=== PATIENT | female | born 1990 | race Caucasian/White ===

== ENCOUNTER 2025-01-25 08:56 | Outpatient (AMB) | payer SELFPAY ==
--- NOTE | 2025-01-25 09:19 | GYNCLNT_ITS ---
Vital Signs 01/25/25 09:20 Height 1.68 m Height Method Stated Weight 55.508 kg Weight Measurement Method Standing Scale BMI 19.7 BP 130/88 H Blood Pressure Source Automatic Cuff Blood Pressure Location Left Upper Arm Position Sitting Respiration 18 Pulse 76 Pulse Source Monitor Temp 97.2 F Temp Source Oral Pulse Oximetry (%) 98 Oxygen Delivery Method Room Air Allergies/Home Meds Allergies & Medications Allergies Penicillins Allergy (Mild, Verified 01/25/25 12:28) Rash Medication Reconciliation progesterone micronized 100 mg vaginal insert 1 insert vaginal BID 10 weeks #21 ea 01/25/25 [Rx] progesterone micronized 100 mg vaginal insert 1 insert vaginal BID 10 weeks #21 ea 01/25/25 [Rx] Intake Visit Data Collection New Patient or Established: New Patient (never been to [facility]) Reason for Visit:: CONFIRMATION Seen by Clinical Staff ONLY (RN/MA): No Air Brush Operator Required: No Do You Feel Safe at Home: Yes Authorities Contacted: N/A PCP or OBGYN visit in last 3 months: Yes Hx Now: Yes Are you currently on any form of Control: No Pain Present Currently: No Smoking Status Smoking Status: Never smoker 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 Patient thinks she is . test was positive today. She is approximately 4 weeks . She states she needs progesterone or she will miscarry. 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 Other Relevant History: No significant past medical history or surgical history Questionnaires Covid-19 Vaccine Questionnaire Has patient been vacinated for Covid-19 Have you been vacinated for Covid-19: No PHQ-9 PHQ-2 Over the last 2 weeks, how often have you been bothered by any of the following problems? 1. Little interest or pleasure in doing things: not at all 2. Feeling down, depressed, or hopeless: not at all Total score: 0 PHQ-9 3. Trouble falling or staying asleep, or sleeping too much: Not at all 4. Feeling tired or having little energy: Not at all 5. Poor appetite or overeating: Not at all 6. Feeling bad about yourself - or that you are a failure or have let yourself or your family down: Not at all 7. Trouble concentrating on things, such as reading the newspaper or watching television: Not at all 8. Moving or speaking so slowly that other people could have noticed? - Or the opposite - being so fidgety or restless that you have been moving around a lot more than usual: not at all 9. Thoughts that you would be better off or of hurting yourself in some way: Not at all Total score: 0 If you checked off any problems, how difficult have these problems made it for you to do your work, take care of things at home, or get along with other people?: not difficult at all Source: Developed by Drs. Bob Smith, Barb Montilla, Azeem Giles and colleagues, with an educational ga from [employer]. Depression screen completed yes Social History Living Situation History Marital Status: Lives With: Family Housing: House Housing Other:: Patient has a 7-year-old 5-year-old 3-year-old daughter and 1-year-old son Tobacco History Smoking Status: Never smoker Second Hand Smoke Exposure: No Alcohol History Alcohol Intake: Never Domestic Abuse History Do You Feel Safe at Home: Yes History of Present Illness HPI Narrative Patient is a 34-year-old -0-2-4 who all care in the past was with Dr. Tyler Lemus in [place] who comes to me for a new OB appointment. She is 4 weeks today. She is afraid she will miscarry. 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 She requests progesterone vaginally. She declines oral progesterone stating it makes her too tired. She has a history of uncomplicated vaginal deliveries x 4. Her first daughter is 7 years old with seven 6 pound 7 ounces second daughter is 5 years old weighed 6 pounds 3 ounces third daughter is 3 years old weighed 6 pounds 13 ounces her last son was induced at 38 weeks secondary to strokelike symptoms . He weighed 7 pounds 8 ounces. Patient likes to go all-natural and has fasr labors. She is worried she is not going to make it to [place] and time to deliver. 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 Ironically her is scheduled to have a vasectomy in 2 weeks. Now he is going to delay this in case she miscarries. She has not released her records from [facility] [place] [facility] yet. She denies bleeding cramping. She is tired. She reports reports mild nausea. Review of Systems Review of Systems Narrative Review of Systems: No vaginal bleeding or abnormal discharge. No cramping. No shortness of breath. Exam General Limitations: no limitations General Appearance: alert, in no apparent distress, comfortable, cooperative, healthy appearing, well developed and well groomed Resp Respiratory exam: Present normal lung sounds bilaterally Card Cardiovascular exam: Present regular rate, normal rhythm and normal heart sounds Abdominal Abdominal exam: Present soft and normal bowel sounds Extremities Extremities exam: Present normal inspection and full ROM Neuro Neurological exam: Present alert and oriented X3 Psych Psychiatric exam: Present normal affect and normal mood Skin Skin exam: Present warm, dry, intact and normal color Results Objective Laboratory: test positive in the office today Office Procedures OB Clinic LOC & Office Proc's Nursing/Assessment Patient Status: Initial/New Patient OB Clinic Nursing Assessment: Medication Reconciliation, Update PMH in EMR and Vital Signs OB Clinic Coordination of Care: Education Complex Pt/Fam, Consent,records obtained, informed consent, Lab and Imaging orders and Staff clarify orders Miscellaneous Interventions: Blood/Urine Collection New Patient Charge New Patient Point Assignment: [id number] New Patient Point Charge: 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 She is taking vitamin. Is too early to confirm yet. Will order vaginal progesterone as requested. Follow-up in 4 to 6 weeks for new OB appointment. (2) Secondary amenorrhea: Status: Acute Assessment and Plan: confirmed today. Additional Plan Follow Up: 6 Weeks
[2025-01-25 09:20] VITALS: BP 130/88; PULSE 76; RESP 18; TEMP 36.2; O2SAT 98; BMI 19.7
== END 2025-01-25 09:49 | disposition home or self-care (01) ==
LOC: HODSOBC 08:56
PROVIDERS: Supervising Provider Obstetrics & Gynecology; Visit Provider Obstetrics & Gynecology
DX: Z32.01 Encounter for pregnancy test, result positive (principal); N91.1 Secondary amenorrhea; Z79.82 Long term (current) use of aspirin; Z88.0 Allergy status to penicillin; Z87.59 Personal history of other complications of pregnancy, childbirth and the puerperium
CPT/HCPCS: 81025; 99203; G0463

== ENCOUNTER 2025-03-19 09:12 | Outpatient (AMB) | payer SELFPAY ==
[2025-03-19 10:16] VITALS: BP 108/74; PULSE 82; RESP 16; TEMP 36.7; O2SAT 97; BMI 20.9
--- NOTE | 2025-03-19 10:16 | OBCLNT_ITS ---
Vital Signs 03/19/25 10:16 Height 1.68 m Height Method Stated Weight 58.967 kg Weight Measurement Method Standing Scale BMI 20.9 BP 108/74 Blood Pressure Source Automatic Cuff Blood Pressure Location Left Upper Arm Position Sitting Respiration 16 Pulse 82 Pulse Source Monitor Temp 98.1 F Temp Source Oral Pulse Oximetry (%) 97 Oxygen Delivery Method Room Air Allergies/Home Meds Allergies & Medications Allergies Penicillins Allergy (Mild, Verified 03/19/25 10:17) Rash Medication Reconciliation progesterone micronized 100 mg vaginal insert 1 insert vaginal BID 10 weeks #21 ea 01/25/25 [Rx Confirmed 03/19/25] progesterone micronized 100 mg vaginal insert 1 insert vaginal BID 10 weeks #21 ea 01/25/25 [Rx Confirmed 03/19/25] Intake Visit Data Collection New Patient or Established: Established Patient (seen at [facility] within 3 years) Reason for Visit:: INITIAL CARE Seen by Clinical Staff ONLY (RN/MA): No Sustainability Communicator Required: No Do You Feel Safe at Home: Yes Authorities Contacted: N/A PCP or OBGYN visit in last 3 months: Yes Hx Now: Yes Are you currently on any form of Control: No Last menstrual period: 11/27/24 Pain Present Currently: No Pain Scale Used: Merino-Yanez/Numerical Pain scale:: 0 Smoking Status Smoking Status: Never smoker Questionnaires Covid-19 Vaccine Questionnaire Has patient been vacinated for Covid-19 Have you been vacinated for Covid-19: No PHQ-9 PHQ-2 Over the last 2 weeks, how often have you been bothered by any of the following problems? 1. Little interest or pleasure in doing things: not at all 2. Feeling down, depressed, or hopeless: not at all Total score: 0 PHQ-9 3. Trouble falling or staying asleep, or sleeping too much: Not at all 4. Feeling tired or having little energy: Not at all 5. Poor appetite or overeating: Not at all 6. Feeling bad about yourself - or that you are a failure or have let yourself or your family down: Not at all 7. Trouble concentrating on things, such as reading the newspaper or watching television: Not at all 8. Moving or speaking so slowly that other people could have noticed? - Or the opposite - being so fidgety or restless that you have been moving around a lot more than usual: not at all 9. Thoughts that you would be better off or of hurting yourself in some way: Not at all Total score: 0 Source: Developed by Drs. Bob Smith, Barb Montilla, Azeem Giles and colleagues, with an educational ga from [employer]). Depression screen completed yes Social History Living Situation History Marital Status: Lives With: Family Housing: House Housing Other:: Patient has a 7-year-old 5-year-old 3-year-old daughter and 1-year-old son Tobacco History Smoking Status: Never smoker Second Hand Smoke Exposure: No Alcohol History Alcohol Intake: Never Domestic Abuse History Do You Feel Safe at Home: Yes History of Present Illness HPI Narrative The patient is a 34-year-old -0-2-4 history of vaginal delivery x 4 presents for care. This was a surprise . Patient's just had a vasectomy recently. She is excited about her . She stays home and homeschools her kids her works for [employer]. OB Ultrasound Indication Indication: Size dates viability OB Ultrasound Ultrasound technique: transabdominal Gestational sac assessment: Presence, location, size, shape: Live intrauterine with a crown-rump length of 5.94 cm corresponding to 12 weeks 3 days. Cardiac activity at 145 bpm seen. OB Initial Visit OB Flowsheet OB Flowsheet Initial Weight: Not Recorded Date -?-?-?-?-?-?-?-?-?-?-?-?- EGA Weight BP Alb Glu CTX Pres Fundal ht FHR Mov Dilation Station Effacement Hx Notes Visit Note 03/19/25 -?-?-?-?-?--?-?-?-?-?-?-?- 12w 0d 58.967 kg 108/74 134 New OB visit. Labs and official ultrasound ordered. Patient is on baby aspirin progesterone 200 vaginally and iron supplements. She declines NIPT Menstrual History Menstrual reliability: definite Flow: normal Menstrual regularity: regular Monthly: Yes Age at menarche: 12 On control pills at conception: No Associated symptoms (LMP): Reports fatigue and breast tenderness OB History : 7 Para: 4 Hx Total # of Abortions (Spontaneous & Elective): 2 # of Living Children: 4 Delivery History 1st : Child's name: LUCA date: 01/28/18 sex: female Gestational age at delivery (weeks): 40 Delivery type: vaginal Delivery complications: NONE History of depression before or after : No 2nd : Child's name: SOO date: 01/30/20 sex: female Gestational age at delivery (weeks): 39 Delivery type: vaginal Delivery complications: NONE History of depression before or after : No 3rd : Child's name: ANDRE date: 02/02/22 sex: female Gestational age at delivery (weeks): 38 Delivery type: vaginal Delivery complications: NONE History of depression before or after : No 4th : Child's name: MARCH date: 12/25/23 sex: male Gestational age at delivery (weeks): 38 Delivery type: vaginal Delivery complications: NONE History of depression before or after : No Infection History & Risk Evaluation History of STDs: none Genetic Screening & History Genetic Screening/Teratology Counseling - Includes patient, baby's father, or anyone in either family with: 1. Patient's age 35 years or older as of estimated date of delivery: No 2. Thalassemia (Luxembourger, Beninese, Mediterranean, or Background); MCV less than 80: No 3. Neural Tube Defect (Meningomyelocele, Spina Bifida, or Anencephaly): No 4. Congenital Heart Defect: No 5. Down Syndrome: No 6. Sid-Sachs (Ashkenazi Mu-Ism, Cajun, Welsh Gage): No 7. Samir Disease (Ashkenazi Mu-Ism): No 8. Familial Dysautonomia (Ashkenazi Mu-Ism): No 9. Sickle Cell Disease or Trait (): No 10. Hemophilia or other blood disorders: No 11. Muscular Dystrophy: No 12. Cystic Fibrosis: No 13. Cody's Chorea: No 14. Mental Retardation/Autism: No 15. Other inherited genetic or chromosomal disorder: No 16. Maternal Metabolic Disorder (EG,TYPE 1 Diabetes, PKU): No 17. Patient or baby's father had a child with defects not listed above: No 18. Recurrent loss or a stillbirth: No 19. Medications (including supplements, vitamins, herbs or otc drugs)/illicit/recreational drugs/alcohol since last menstrual period: No 20. Any other: No Comments/Counseling: Patient declines genetic testing in the form of NIPT Infection History 1. Live with someone with TB or exposed to TB: No 2. Rash or viral illness since last menstrual period: No 3. Hepatitis B,C: No Other (see comments) Source: [employer] Review of Systems Constitutional Constitutional: Reports fatigue Endocrine Endocrine: Reports fatigue Exam General Limitations: no limitations General Appearance: alert, in no apparent distress, comfortable, cooperative, healthy appearing and well groomed Neck Neck exam: Present normal inspection, full ROM and trachea midline Chest Chest inspection: Present normal inspection and symmetric chest wall rise Resp Respiratory exam: Present normal lung sounds bilaterally Card Cardiovascular exam: Present regular rate, normal rhythm and normal heart sounds Abdominal Abdominal exam: Present soft and normal bowel sounds Psych Psychiatric exam: Present normal affect and normal mood Skin Skin exam: Present warm, dry, intact and normal color Office Procedures OB Clinic LOC & Office Proc's Nursing/Assessment Patient Status: Established Patient OB Clinic Nursing Assessment: Medication Reconciliation, Update PMH in EMR and Vital Signs OB Clinic Coordination of Care: Complex Care and Chronic Disease 1-5, Consent,records obtained, informed consent, Education Simp Pt/Fam, Lab and Imaging orders, Results/Orders obtained and Staff clarify orders Special Needs: Heart tones Established Patient Charge Established Patient Point Assignment: 135 Established Patient Point Charge: EP Level 4 (120-155) Assessment & Plan Diagnosis / Problem List (1) : Status: Acute Qualifiers: Weeks of gestation: 12 weeks Qualified Code(s): Z3A.12 - 12 weeks gestation of Plan: Pap deferred as it was performed in 2023 no history of abnormal Pap declines NIPT testing. labs and official ultrasound ordered. Follow-up in 4 weeks. EDC 09/24/25 (2) Grand multiparity: Status: Acute Plan: Patient has a history of fast labors. No history of hemorrhage. Patient's just had a vasectomy.
== END 2025-03-19 10:35 | disposition home or self-care (01) ==
LOC: HODSOBC 09:12
PROVIDERS: PCP Obstetrics & Gynecology; Referring Provider Obstetrics & Gynecology; Supervising Provider Obstetrics & Gynecology; Visit Provider Obstetrics & Gynecology
DX: O09.41 Supervision of pregnancy with grand multiparity, first trimester (principal); Z3A.12 12 weeks gestation of pregnancy; Z53.29 Procedure and treatment not carried out because of patient's decision for other reasons; Z87.59 Personal history of other complications of pregnancy, childbirth and the puerperium
CPT/HCPCS: 99214; G0463

== ENCOUNTER 2025-04-28 08:35 | Outpatient (AMB) | payer SELFPAY ==
[2025-04-28 08:40] VITALS: BP 115/71; PULSE 91; RESP 16; TEMP 36.2; O2SAT 98; BMI 21.5
--- NOTE | 2025-04-28 08:40 | OBCLNT_ITS ---
Vital Signs 04/28/25 08:40 Height 1.68 m Height Method Stated Weight 60.895 kg Weight Measurement Method Standing Scale BMI 21.5 BP 115/71 Blood Pressure Source Automatic Cuff Blood Pressure Location Left Upper Arm Position Sitting Respiration 16 Pulse 91 Pulse Source Monitor Temp 97.2 F Temp Source Oral Pulse Oximetry (%) 98 Oxygen Delivery Method Room Air Allergies/Home Meds Allergies & Medications Allergies Penicillins Allergy (Mild, Verified 04/28/25 08:41) Rash Medication Reconciliation progesterone micronized 100 mg vaginal insert 1 insert vaginal BID 10 weeks #21 ea 01/25/25 [Rx Confirmed 04/28/25] progesterone micronized 100 mg vaginal insert 1 insert vaginal BID 10 weeks #21 ea 01/25/25 [Rx Confirmed 04/28/25] Intake Visit Data Collection New Patient or Established: Established Patient (seen at [facility] within 3 years) Reason for Visit:: OBC Seen by Clinical Staff ONLY (RN/MA): No Sales Special Agent Required: No Do You Feel Safe at Home: Yes Authorities Contacted: N/A PCP or OBGYN visit in last 3 months: Yes Date of Last PCP or OBGYN visit: 03/19/25 Hx Now: Yes Are you currently on any form of Control: No Pain Present Currently: No Pain Scale Used: Merino-Yanez/Numerical Pain scale:: 0 Smoking Status Smoking Status: Never smoker Questionnaires Covid-19 Vaccine Questionnaire Has patient been vacinated for Covid-19 Have you been vacinated for Covid-19: No PHQ-9 PHQ-2 Over the last 2 weeks, how often have you been bothered by any of the following problems? 1. Little interest or pleasure in doing things: not at all 2. Feeling down, depressed, or hopeless: not at all Total score: 0 PHQ-9 3. Trouble falling or staying asleep, or sleeping too much: Not at all 4. Feeling tired or having little energy: Not at all 5. Poor appetite or overeating: Not at all 6. Feeling bad about yourself - or that you are a failure or have let yourself or your family down: Not at all 7. Trouble concentrating on things, such as reading the newspaper or watching television: Not at all 8. Moving or speaking so slowly that other people could have noticed? - Or the opposite - being so fidgety or restless that you have been moving around a lot more than usual: not at all 9. Thoughts that you would be better off or of hurting yourself in some way: Not at all Total score: 0 If you checked off any problems, how difficult have these problems made it for you to do your work, take care of things at home, or get along with other people?: not difficult at all Source: Developed by Drs. Bob Smith, Barb Montilla, Azeem Giles and colleagues, with an educational ga from [employer]. Depression screen completed yes Social History Living Situation History Lives With: Family Housing: House Housing Other:: Patient has a 7-year-old 5-year-old 3-year-old daughter and 1-year-old son Tobacco History Smoking Status: Never smoker Second Hand Smoke Exposure: No Alcohol History Alcohol Intake: Never Domestic Abuse History Do You Feel Safe at Home: Yes Care OB Visit Log OB Flowsheet Initial Weight: Not Recorded Date -?-?-?-?-?-?-?-?-?-?-?-?- EGA Weight BP Alb Glu CTX Pres Fundal ht FHR Mov Dilation Station Effacement Hx Notes Visit Note 03/19/25 -?-?-?-?-?-?-?-?-?-?-?-?- 12w 0d 58.967 kg 108/74 134 New OB visit. Labs and official ultrasound ordered. Patient is on baby aspirin progesterone 200 vaginally and iron supplements. She declines NIPT 04/28/25 -?-?-?-?-?-?-?-?-?-?-?-?- 17w 5d 60.895 kg 115/71 18 158 active Did not get labs drawn yet +FM No UCs No VB Declines NI PT MARIAM Calculator Estimated Delivery Date Method Current WG Current Estimate 10/01/25 LMP (Certain) 17w 5d Expected Delivery Route/Plan History of uncomplicated x 4. Anticipate Goes natural with labors. History of rapid labors. Specific Issue/Plans -0-2-4. Has 3 girls age 7, 5, 3 and a son age 1. Spouse with vasectomy 2 weeks before patient found out she was . 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 Declined NIPT Notes Visit Date: 04/28/25 Last Updated by: Melanie Reeder (OB Clinic), Will get 20 week Scan done Has large right varicose veins all in leg. Already has a compression stocking. She has not worn it yet. US done today and it is a girl. Office Procedures OB Clinic LOC & Office Proc's Nursing/Assessment Patient Status: Established Patient OB Clinic Nursing Assessment: Medication Reconciliation, Update PMH in EMR and Vital Signs OB Clinic Coordination of Care: Education Complex Pt/Fam, Consent,records obtained, informed consent, Lab and Imaging orders, Results/Orders obtained and Staff clarify orders Special Needs: Heart tones Established Patient Charge Established Patient Point Assignment: 115 Established Patient Point Charge: EP Level 3 (80-115) Assessment & Plan Diagnosis / Problem List (1) Grand multiparity: Status: Acute Plan: Two IV lines at delivery (2) : Status: Acute Qualifiers: Weeks of gestation: 17 weeks Qualified Code(s): Z3A.17 - 17 weeks station of
== END 2025-04-28 09:04 | disposition home or self-care (01) ==
LOC: HODSOBC 08:35
PROVIDERS: Supervising Provider Obstetrics & Gynecology; Visit Provider Obstetrics & Gynecology
DX: O09.42 Supervision of pregnancy with grand multiparity, second trimester (principal); Z3A.17 17 weeks gestation of pregnancy; O09.892 Supervision of other high risk pregnancies, second trimester; O22.02 Varicose veins of lower extremity in pregnancy, second trimester; I83.90 Asymptomatic varicose veins of unspecified lower extremity; Z53.29 Procedure and treatment not carried out because of patient's decision for other reasons; Z88.0 Allergy status to penicillin
CPT/HCPCS: 99213; G0463

== ENCOUNTER 2025-06-04 08:32 | Outpatient (AMB) | payer SELFPAY ==
--- NOTE | 2025-06-04 08:42 | OBCLNT_ITS ---
Vital Signs 06/04/25 08:43 Height 1.68 m Height Method Stated Weight 64.637 kg Weight Measurement Method Standing Scale BMI 22.8 BP 125/75 Blood Pressure Source Automatic Cuff Blood Pressure Location Left Upper Arm Position Sitting Respiration 18 Pulse 90 Pulse Source Monitor Temp 97.2 F Temp Source Oral Pulse Oximetry (%) 98 Oxygen Delivery Method Room Air Allergies/Home Meds Allergies & Medications Allergies Penicillins Allergy (Mild, Verified 06/04/25 08:44) Rash Medication Reconciliation progesterone micronized 100 mg vaginal insert 1 insert vaginal BID 10 weeks #21 ea 01/25/25 [Rx Confirmed 06/04/25] progesterone micronized 100 mg vaginal insert 1 insert vaginal BID 10 weeks #21 ea 01/25/25 [Rx Confirmed 06/04/25] Intake Visit Data Collection New Patient or Established: Established Patient (seen at [facility] within 3 years) Reason for Visit:: OBC Seen by Clinical Staff ONLY (RN/MA): No Metal Finish Inspector Required: No Do You Feel Safe at Home: Yes Authorities Contacted: N/A PCP or OBGYN visit in last 3 months: Yes Date of Last PCP or OBGYN visit: 04/28/25 Hx Now: Yes Are you currently on any form of Control: No Pain Present Currently: No Pain Scale Used: Merino-Yanez/Numerical Pain scale:: 0 Smoking Status Smoking Status: Never smoker Immunizations Flu Vaccine in the Last 12 Months: No Flu Vaccine Exclusion Criteria: No Exclusion Criteria Questionnaires Covid-19 Vaccine Questionnaire Has patient been vacinated for Covid-19 Have you been vacinated for Covid-19: No PHQ-9 PHQ-2 Over the last 2 weeks, how often have you been bothered by any of the following problems? 1. Little interest or pleasure in doing things: not at all 2. Feeling down, depressed, or hopeless: not at all Total score: 0 PHQ-9 3. Trouble falling or staying asleep, or sleeping too much: Not at all 4. Feeling tired or having little energy: Not at all 5. Poor appetite or overeating: Not at all 6. Feeling bad about yourself - or that you are a failure or have let yourself or your family down: Not at all 7. Trouble concentrating on things, such as reading the newspaper or watching television: Not at all 8. Moving or speaking so slowly that other people could have noticed? - Or the opposite - being so fidgety or restless that you have been moving around a lot more than usual: not at all 9. Thoughts that you would be better off or of hurting yourself in some way: Not at all Total score: 0 If you checked off any problems, how difficult have these problems made it for you to do your work, take care of things at home, or get along with other people?: not difficult at all Source: Developed by Drs. Bob Smith, Barb Montilla, Azeem Giles and colleagues, with an educational ga from [employer]. Depression screen completed yes Social History Living Situation History Marital Status: Lives With: Family Housing: House Housing Other:: Patient has a 7-year-old 5-year-old 3-year-old daughter and 1-year-old son Tobacco History Smoking Status: Never smoker Second Hand Smoke Exposure: No Alcohol History Alcohol Intake: Never Domestic Abuse History Do You Feel Safe at Home: Yes Care OB Visit Log OB Flowsheet Initial Weight: Not Recorded Date -?-?-?-?-?-?-?-?-?-?-?-?- EGA Weight BP Alb Glu CTX Pres Fundal ht FHR Mov Dilation Station Effacement Hx Notes Visit Note 03/19/25 -?-?-?-?-?-?-?-?-?-?-?-?- 12w 0d 58.967 kg 108/74 134 New OB visit. Labs and official ultrasound ordered. Patient is on baby aspirin progesterone 200 vaginally and iron supplements. She declines NIPT 04/28/25 -?-?-?-?-?-?-?-?-?-?-?-?- 17w 5d 60.895 kg 115/71 18 158 active Did not get labs drawn yet +FM No UCs No VB Declines NI PT 06/04/25 -?-?-?-?-?-?-?-?-?-?-?-?- 23w 0d 64.637 kg 125/75 absent unknown 21 156 active No OB complaints. Patient agrees to get labs at [facility] in [place]. And she will do an ultrasound at [facility] in [place] as well reports fetus is active. Denies leaking, bleeding, contractions The lab slip to [facility] for OB panel in 1 hour. I gave patient a form to schedule her OB sono at [facility] in [place]. Discussed labor precautions. Continue prenatals return in 4 weeks OB check MARIAM Calculator Estimated Delivery Date Method Current WG Current Estimate 10/01/25 LMP (Certain) 23w 0d Expected Delivery Route/Plan History of uncomplicated x 4. Anticipate Goes natural with labors. History of rapid labors. Specific Issue/Plans -0-2-4. Has 3 girls age 7, 5, 3 and a son age 1. Spouse with vasectomy 2 weeks before patient found out she was . 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 Declined NIPT Notes Visit Date: 04/28/25 Last Updated by: Melanie Reeder (OB Clinic), Will get 20 week Scan done Has large right varicose veins all in leg. Already has a compression stocking. She has not worn it yet. US done today and it is a girl. Office Procedures OBC Clinic LOC & Office Proc's Nursing/Assessment Patient Status: Established Patient OB Clinic Nursing Assessment: Medication Reconciliation, Update PMH in EMR and Vital Signs OB Clinic Coordination of Care: Consent,records obtained, informed consent, Education Simp Pt/Fam, Lab and Imaging orders and Staff clarify orders Special Needs: Heart tones Established Patient Charge Established Patient Point Assignment: 105 Established Patient Point Charge: EP Level 3 (80-115) Assessment & Plan Diagnosis / Problem List (1) Encounter for supervision of high risk in second trimester, an tepartum: Status: Acute (2) Grand multiparity: Status: Acute Plan Schedule anatomy scan at [facility]. Patient given a lab slip to do her OB panel and third trimester labs at [facility] in [place]. Discussed labor precautions increase fluids and return in 4 weeks OB Additional Plan Follow Up: 4 Weeks (obc)
[2025-06-04 08:43] VITALS: BP 125/75; PULSE 90; RESP 18; TEMP 36.2; O2SAT 98; BMI 22.8
== END 2025-06-04 09:16 | disposition home or self-care (01) ==
LOC: HODSOBC 08:32
PROVIDERS: Supervising Provider Advanced Practice Midwife; Visit Provider Advanced Practice Midwife
DX: O09.42 Supervision of pregnancy with grand multiparity, second trimester (principal); Z3A.23 23 weeks gestation of pregnancy
CPT/HCPCS: 99213; G0463

== ENCOUNTER 2025-07-14 08:34 | Outpatient (AMB) | payer SELFPAY ==
[2025-07-14 08:46] VITALS: BP 130/77; PULSE 92; RESP 18; TEMP 36.3; O2SAT 98; BMI 24.1
--- NOTE | 2025-07-14 08:46 | OBCLNT_ITS ---
Vital Signs 07/14/25 08:46 Height 1.68 m Height Method Stated Weight 68.096 kg Weight Measurement Method Standing Scale BMI 24.1 BP 130/77 Blood Pressure Source Automatic Cuff Blood Pressure Location Left Upper Arm Position Sitting Respiration 18 Pulse 92 Pulse Source Monitor Temp 97.3 F Temp Source Oral Pulse Oximetry (%) 98 Oxygen Delivery Method Room Air Allergies/Home Meds Allergies & Medications Allergies Penicillins Allergy (Mild, Verified 07/14/25 08:54) Rash Medication Reconciliation progesterone micronized 100 mg vaginal insert 1 insert vaginal BID 10 weeks #21 ea 01/25/25 [Rx Confirmed 07/14/25] progesterone micronized 100 mg vaginal insert 1 insert vaginal BID 10 weeks #21 ea 01/25/25 [Rx Confirmed 07/14/25] Immunizations Immunizations Flu Vaccine in the Last 12 Months: No Flu Vaccine Exclusion Criteria: Refused by Patient Care OB Visit Log OB Flowsheet Initial Weight: Not Recorded Date -?-?-?-?-?-?-?-?-?-?-?-?- EGA Weight BP Alb Glu CTX Pres Fundal ht FHR Mov Dilation Station Effacement Hx Notes Visit Note 03/19/25 -?-?-?-?-?-?-?-?-?-?-?-?- 12w 0d 58.967 kg 108/74 134 New OB visit. Labs and official ultrasound ordered. Patient is on baby aspirin progesterone 200 vaginally and iron supplements. She declines NIPT 04/28/25 -?-?-?-?-?-?-?-?-?-?-?-?- 17w 5d 60.895 kg 115/71 18 158 active Did not get labs drawn yet +FM No UCs No VB Declines NI PT 06/04/25 -?--?-?-?-?-?-?-?-?-?-?-?- 23w 0d 64.637 kg 125/75 absent unknown 21 156 active No OB complaints. Patient agrees to get labs at [facility] in [place]. And she will do an ultrasound at [facility] in [place] as well reports fetus is active. Denies leaking, bleeding, contractions The lab slip to [facility] for OB panel in 1 hour. I gave patient a form to schedule her OB sono at [facility] in [place]. Discussed labor precautions. Continue prenatals return in 4 weeks OB check 07/14/25 -?-?-?-?-?-?-?-?-?-?-?-?- 28w 5d 68.096 kg 130/77 absent unknown 28 156 active No OB complaints. Patient did not do lab slip. She is self-pay. Denies leaking, bleeding, contractions. Reports good movement patient is wearing compression stockings for her varicose vein in her right leg. And she is taking low-dose baby aspirin Continue doroteo will stockings and low-dose baby aspirin. Third trimester labs ordered today. Discussed labor precautions. Return in 3 weeks OB check MARIAM Calculator Estimated Delivery Date Method Current WG Current Estimate 10/01/25 LMP (Certain) 28w 5d Other Estimates 09/24/25 Ultrasound #1 29w 5d Expected Delivery Route/Plan History of uncomplicated x 4. Anticipate Goes natural with labors. History of rapid labors. Specific Issue/Plans -0-2-4. Has 3 girls age 7, 5, 3 and a son age 1. Spouse with vasectomy 2 weeks before patient found out she was . 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 Declined NIPT Notes Visit Date: 04/28/25 Last Updated by: Melanie Reeder (OB Clinic), Will get 20 week Scan done Has large right varicose veins all in leg. Already has a compression stocking. She has not worn it yet. US done today and it is a girl. Office Procedures OBC Clinic LOC & Office Proc's Nursing/Assessment Patient Status: Established Patient OB Clinic Nursing Assessment: Medication Reconciliation, Update PMH in EMR and Vital Signs OB Clinic Coordination of Care: Complex Care and Chronic Disease 1-5, Consent,records obtained, informed consent, Education Simp Pt/Fam, Lab and Imaging orders and Staff clarify orders Special Needs: Heart tones Established Patient Charge Established Patient Point Assignment: 130 Established Patient Point Charge: EP Level 4 (120-155) Assessment & Plan Diagnosis / Problem List (1) Encounter for supervision of high risk in third trimester, antepartum: Status: Acute Plan Third trimester labs today. Continue compression stocking and low-dose baby aspirin. Discussed labor precautions. Return in 3 to 4 weeks OB check Additional Plan Follow Up: 3 Weeks (obc)
== END 2025-07-14 09:26 | disposition home or self-care (01) ==
PROVIDERS: Supervising Provider Advanced Practice Midwife; Visit Provider Advanced Practice Midwife
DX: O09.893 Supervision of other high risk pregnancies, third trimester (principal); O22.03 Varicose veins of lower extremity in pregnancy, third trimester; I83.91 Asymptomatic varicose veins of right lower extremity; Z3A.28 28 weeks gestation of pregnancy
CPT/HCPCS: 99214; G0463

== ENCOUNTER → 2025-07-14 | Outpatient (CLI) | payer SELFPAY ==
[2025-07-14 11:41] LABS: Basophils # (Auto) 0.0 Thou/mm3 (0.0-0.2); Basophils % (Auto) 0 % (0-2.5); Eosinophils # (Auto) 0.1 Thou/mm3 (0.0-0.5); Eosinophils % (Auto) 1 % (0-10); Hematocrit 35.1 % (36.0-46.0); Hemoglobin 11.5 g/dL (12.0-16.0); Immature Granulocytes Auto 0.03 Thou/mm3 (0.00-0.00); Lymphocytes # (Auto) 1.5 Thou/mm3 (1.0-4.8); Lymphocytes % (Auto) 21 % (10-50); Mean Corpuscular HGB Conc 32.8 g/dl (31.0-37.0); Mean Corpuscular Hemoglobin 30.5 pg (25.0-35.0); Mean Corpuscular Volume 93 fL (80-100); Monocytes # (Auto) 0.6 Thou/mm3 (0.0-0.8); Monocytes % (Auto) 8 % (0-12); Neutrophils # (Auto) 5.0 Thou/mm3 (1.8-7.7); Neutrophils % (Auto) 69 % (37-80); Nucleated Red Blood Cell # 0.00 Thou/mm3 (0.00-0.00); Nucleated Red Blood Cell % 0 /100 WBC (0); Platelet Count 217 Thou/mm3 (140-440); RDW Standard Deviation 41.1 fL (36.4-46.3); Red Blood Count 3.77 Miln/mm3 (4.00-5.20); White Blood Count 7.3 Thou/mm3 (3.6-11.0)
[2025-07-14 11:55] LABS: Glucose,1 Hour PP 50gm Dose 88 mg/dL (80-140)
[2025-07-14 12:15] LABS: Glucose Estimated Average 103 mg/dL (80-131); Hemoglobin A1C 5.2 % Hgb (4.8-6.0)
[2025-07-14 12:41] LABS: Syphilis Nonreactive (Nonreactive)
== END | disposition home or self-care (01) ==
PROVIDERS: Referring Provider Advanced Practice Midwife; Visit Provider Advanced Practice Midwife
DX: O09.93 Supervision of high risk pregnancy, unspecified, third trimester (principal)
CPT/HCPCS: 36415; 82950; 83036; 85025; 86780

== ENCOUNTER 2025-08-09 08:31 | Outpatient (AMB) | payer SELFPAY ==
--- NOTE | 2025-08-09 08:34 | OBCLNT_ITS ---
Vital Signs 08/09/25 08:37 Height 1.68 m Height Method Stated Weight 69.173 kg Weight Measurement Method Standing Scale BMI 24.5 BP 122/70 Blood Pressure Source Automatic Cuff Blood Pressure Location Left Upper Arm Position Sitting Respiration 18 Pulse 83 Pulse Source Monitor Temp 98.2 F Temp Source Oral Pulse Oximetry (%) 98 Oxygen Delivery Method Room Air Allergies/Home Meds Allergies & Medications Allergies Penicillins Allergy (Mild, Verified 08/09/25 08:37) Rash Medication Reconciliation progesterone micronized 100 mg vaginal insert 1 insert vaginal BID 10 weeks #21 ea 01/25/25 [Rx Confirmed 08/09/25] progesterone micronized 100 mg vaginal insert 1 insert vaginal BID 10 weeks #21 ea 01/25/25 [Rx Confirmed 08/09/25] Immunizations Immunizations Flu Vaccine in the Last 12 Months: No Flu Vaccine Exclusion Criteria: Refused by Patient Care OB Visit Log OB Flowsheet Initial Weight: Not Recorded Date -?-?-?-?-?-?-?-?-?-?-?-?- EGA Weight BP Alb Glu CTX Pres Fundal ht FHR Mov Dilation Station Effacement Hx Notes Visit Note 03/19/25 -?-?-?-?-?-?-?-?-?-?-?-?- 12w 0d 58.967 kg 108/74 134 New OB visit. Labs and official ultrasound ordered. Patient is on baby aspirin progesterone 200 vaginally and iron supplements. She declines NIPT 04/28/25 -?-?-?-?-?-?-?-?-?-?-?-?- 17w 5d 60.895 kg 115/71 18 158 active Did not get labs drawn yet +FM No UCs No VB Declines NI PT 06/04/25 -?--?-?-?-?-?-?-?-?-?-?-?- 23w 0d 64.637 kg 125/75 absent unknown 21 156 active No OB complaints. Patient agrees to get labs at [facility] in [place]. And she will do an ultrasound at [facility] in [place] as well reports fetus is active. Denies leaking, bleeding, contractions The lab slip to [facility] for OB panel in 1 hour. I gave patient a form to schedule her OB sono at [facility] in [place]. Discussed labor precautions. Continue prenatals return in 4 weeks OB check 07/14/25 -?-?-?-?-?-?-?-?-?-?-?-?- 28w 5d 68.096 kg 130/77 absent unknown 28 156 active No OB complaints. Patient did not do lab slip. She is self-pay. Denies leaking, bleeding, contractions. Reports good movement patient is wearing compression stockings for her varicose vein in her right leg. And she is taking low-dose baby aspirin Continue doroteo will stockings and low-dose baby aspirin. Third trimester labs ordered today. Discussed labor precautions. Return in 3 weeks OB check 08/09/25 -?-?-?-?-?-?-?-?-?-?-?-?- 32w 3d 69.173 kg 122/70 absent cephalic 31 156 active Reports good movement. Denies leaking, bleeding, contractions Continue to use compression stockings. Discussed danger signs symptoms and ER precautions. Kick count twice a day. Return in 2 weeks OB check MARIAM Calculator Estimated Delivery Date Method Current WG Current Estimate 10/01/25 LMP (Certain) 32w 3d Other Estimates 09/24/25 Ultrasound #1 33w 3d Expected Delivery Route/Plan History of uncomplicated x 4. Anticipate Goes natural with labors. History of rapid labors. Specific Issue/Plans -0-2-4. Has 3 girls age 7, 5, 3 and a son age 1. Spouse with vasectomy 2 weeks before patient found out she was . 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 Declined NIPT Notes Visit Date: 08/09/25 Last Updated by: Kathleen Wesley CNM 08/09: 3rd tri lab wnl Visit Date: 04/28/25 Last Updated by: Melanie Reeder (OB Clinic)MD Will get 20 week Scan done Has large right varicose veins all in leg. Already has a compression stocking. She has not worn it yet. US done today and it is a girl. Office Procedures OBC Clinic LOC & Office Proc's Nursing/Assessment Patient Status: Established Patient OB Clinic Nursing Assessment: Medication Reconciliation, Update PMH in EMR and Vital Signs OB Clinic Coordination of Care: Complex Care and Chronic Disease 1-5, Consent,records obtained, informed consent, Education Simp Pt/Fam, Lab and Imaging orders, Results/Orders obtained and Staff clarify orders Special Needs: Heart tones Established Patient Charge Established Patient Point Assignment: 135 Established Patient Point Charge: EP Level 4 (120-155) Assessment & Plan Diagnosis / Problem List (1) Encounter for supervision of high risk in third trimester, antepartum: Status: Acute Plan Discussed labs. Continue prenatals. Diet and exercise. Patient to wear support hose if she can. Return in 2 weeks OB check` Additional Plan Follow Up: 2 Weeks (obc)
[2025-08-09 08:37] VITALS: BP 122/70; PULSE 83; RESP 18; TEMP 36.8; O2SAT 98; BMI 24.5
== END 2025-08-09 09:09 | disposition home or self-care (01) ==
LOC: HODSOBC 08:31
PROVIDERS: Supervising Provider Advanced Practice Midwife; Visit Provider Advanced Practice Midwife
DX: O09.93 Supervision of high risk pregnancy, unspecified, third trimester (principal); Z3A.32 32 weeks gestation of pregnancy; Z88.0 Allergy status to penicillin; Z28.21 Immunization not carried out because of patient refusal
CPT/HCPCS: 99214; G0463